=== PATIENT | female | born 1960 | race Caucasian/White ===

== ENCOUNTER 2017-12-11 10:24 | Outpatient (CLI) | payer MEDICARE, OTHER ==
[2017-12-11 11:05] LABS: #Basophils 0.1 thou/uL (0.0-0.2); #Eosinphils 0.1 thou/uL (0.0-0.7); #Monocytes 0.7 thou/uL (0.11-0.59); #Neutrophils 6.3 thou/uL (1.40-6.50); %Basophils 1.4 % (0.0-1.0); %Lymphocytes 21.6 % (21.0-51.0); %Neutrophils 68.9 % (42.0-75.0); Hemoglobin 15.5 g/dL (12.0-16.0); Mean Corpuscular HGB CONC 31.7 g/dL (32.0-36.0); Mean Corpuscular Hemoglobin 30.7 pg (27.0-31.0); Mean Corpuscular Volume 96.7 fl (81.0-99.0); Mean Platelet Volume 7.7 fL (7.4-10.4); Platelet Count 271 thou/uL (130-400); RBC Distribution Width 12.9 % (11.5-14.5); Red Blood Cell (RBC) Count 5.03 mill/uL (4.20-5.40); White Blood Cell (WBC) Count 9.2 thou/uL (4.8-10.8)
[2017-12-11 11:22] LABS: ALT (SGPT) 13 U/L (8-55); AST (SGOT) 15 U/L (5-34); Alkaline Phosphatase 101 U/L (40-150); Anion Gap 14 mmol/L (10-20); BUN (Urea Nitrogen) 8 mg/dL (9.8-20.1); Bilirubin, Direct 0.2 mg/dL (0.1-0.3); Bilirubin, Total 0.5 mg/dL (0.2-1.2); Calc. Creatinine Clearance 0 mL/min (70-130); Calcium 9.4 mg/dL (7.8-10.44); Carbon Dioxide 21 mmol/L (22-29); Chloride 108 mmol/L (98-107); Cholesterol 235 mg/dl (< 200 Desired); Estimated GFR-MDRD 73; Glucose 107 mg/dL (70-105); HDL Cholesterol 59 mg/dL (>60 Neg Risk); LDL Cholesterol, Calculated 160 mg/dL; Potassium 4.4 mmol/L (3.5-5.1); Protein, Total 7.2 g/dL (6.0-8.3); Sodium 139 mmol/L (136-145); Triglycerides 81 mg/dL (Less than 150)
--- NOTE | 2017-12-11 11:41 | RAD ---
TWO VIEW CHEST: Comparison: 04-22-14 Clinical history: Physical exam. FINDINGS: There is a left chest port again seen with tip overlying SVC region. There is no new consolidation, e ffusion, or pneumothorax. Cardiac silhouette is stable. There are interstitial opacities of each lung , nonspecific. IMPRESSION: 1. No lobar consolidation. 2. Chest is grossly stable from 04-22-14. POS: [facility]
== END 2017-12-11 10:25 | disposition home or self-care (01) ==
LOC: MADLABBHPM 10:24
PROVIDERS: ATTEND Family Medicine
DX: Z00.00 Encounter for general adult medical examination without abnormal findings (principal); I10 Essential (primary) hypertension; E03.9 Hypothyroidism, unspecified
CPT/HCPCS: 36415; 71046; 80048; 80061; 80076; 84443; 85025; 93005; 93010

== ENCOUNTER 2022-08-06 10:21 | Outpatient (CLI) | payer MEDICARE ==
[2022-08-06 11:22] LABS: #Basophils 0.2 thou/uL (0.0-0.2); #Eosinphils 0.1 thou/uL (0.0-0.7); #Lymphocytes 2.8 thou/uL (1.20-3.40); #Monocytes 1.3 thou/uL (0.11-0.59); #Neutrophils 9.9 thou/uL (1.40-6.50); %Basophils 1.5 % (0.0-1.0); %Eosinophils 0.4 % (0.0-10.0); %Lymphocytes 19.9 % (21.0-51.0); %Monocytes 8.8 % (0.0-10.0); %Neutrophils 69.4 % (42.0-75.0); Hemoglobin 16.2 g/dL (12.0-16.0); Mean Corpuscular HGB CONC 31.1 g/dL (32.0-36.0); Mean Corpuscular Hemoglobin 28.7 pg (27.0-31.0); Mean Corpuscular Volume 92.2 fL (78.0-98.0); Platelet Count 338 thou/uL (130-400); RBC Distribution Width 12.4 % (11.5-14.5); Red Blood Cell (RBC) Count 5.64 mill/uL (4.20-5.40); White Blood Cell (WBC) Count 14.3 thou/uL (4.8-10.8)
[2022-08-06 11:28] LABS: ALT (SGPT) 15 U/L (8-55); AST (SGOT) 12 U/L (5-34); Albumin 4.5 g/dL (3.4-4.8); Alkaline Phosphatase 96 U/L (40-110); Anion Gap 18 mmol/L (10-20); BUN (Urea Nitrogen) 14 mg/dL (9.8-20.1); Bilirubin, Total 0.5 mg/dL (0.2-1.2); Calc. Creatinine Clearance 0 mL/min (70-130); Calcium 10.8 mg/dL (7.8-10.44); Carbon Dioxide 25 mmol/L (23-31); Chloride 97 mmol/L (98-107); Cholesterol 260 mg/dl (< 200 Desired); Estimated GFR 81; Globulin 3.5 g/dL (2.4-3.5); Glucose 118 mg/dL (80-115); HDL Cholesterol 65 mg/dL (>60 Neg Risk); LDL Cholesterol, Calculated 164 mg/dL; Potassium 4.1 mmol/L (3.5-5.1); Sodium 136 mmol/L (136-145); Triglycerides 153 mg/dL (Less than 150)
== END 2022-08-06 10:22 | disposition home or self-care (01) ==
LOC: MADLAB 10:21
PROVIDERS: ATTEND Family Medicine
DX: Z13.220 Encounter for screening for lipoid disorders (principal); R07.89 Other chest pain; I10 Essential (primary) hypertension; R91.8 Other nonspecific abnormal finding of lung field; M84.48XA Pathological fracture, other site, initial encounter for fracture
CPT/HCPCS: 36415; 71046; 80053; 80061; 84443; 85025

== ENCOUNTER 2022-09-23 14:30 | Inpatient (IN) | payer MEDICARE ==
[2022-09-28] MEDS ORDERED: Ondansetron ODT 4 MG TAB PO PRN (18:24)
[2022-09-28] MEDS: HYDROcodone/Acetaminophen 7.5/325 mg Tablet PO PRN (21:17)
[2022-09-28] MEDS: Carvedilol 3.125 MG TAB PO SCH (21:17)
[2022-09-28] MEDS: Clotrimazole 1% Cream 15 GM TUBE TOP SCH (21:19)
[2022-09-28] MEDS: Nystatin 500,000 UNITS/5 ML UDCUP SSW SCH (21:19)
[2022-09-29] MEDS: HYDROcodone/Acetaminophen 7.5/325 mg Tablet PO PRN ×2 (01:59→17:46)
[2022-09-29 05:23] LABS: #Basophils 0.1 thou/uL (0.0-0.2); #Eosinphils 0.1 thou/uL (0.0-0.7); #Lymphocytes 1.3 thou/uL (1.20-3.40); #Monocytes 1.1 thou/uL (0.11-0.59); #Neutrophils 11.2 thou/uL (1.40-6.50); %Basophils 0.6 % (0.0-1.0); %Eosinophils 0.5 % (0.0-10.0); %Lymphocytes 9.7 % (21.0-51.0); %Monocytes 7.7 % (0.0-10.0); %Neutrophils 81.5 % (42.0-75.0); Hemoglobin 11.1 g/dL (12.0-16.0); Mean Corpuscular HGB CONC 31.9 g/dL (32.0-36.0); Mean Corpuscular Hemoglobin 28.2 pg (27.0-31.0); Mean Corpuscular Volume 88.5 fl (78.0-98.0); Mean Platelet Volume 8.1 fL (7.4-10.4); Platelet Count 194 thou/uL (130-400); Red Blood Cell (RBC) Count 3.92 mill/uL (4.20-5.40); White Blood Cell (WBC) Count 13.7 thou/uL (4.8-10.8)
[2022-09-29 05:40] LABS: ALT (SGPT) 25 U/L (8-55); AST (SGOT) 22 U/L (5-34); Albumin 2.9 g/dL (3.4-4.8); Alkaline Phosphatase 94 U/L (40-110); Anion Gap 14 mmol/L (10-20); BUN (Urea Nitrogen) 12 mg/dL (9.8-20.1); Bilirubin, Total 0.4 mg/dL (0.2-1.2); Calc. Creatinine Clearance 101 mL/min (70-130); Calcium 9.1 mg/dL (7.8-10.44); Carbon Dioxide 32 mmol/L (23-31); Chloride 93 mmol/L (98-107); Estimated GFR 99; Globulin 2.9 g/dL (2.4-3.5); Glucose 91 mg/dL (80-115); Potassium 3.8 mmol/L (3.5-5.1); Protein, Total 5.8 g/dL (5.8-8.1); Sodium 135 mmol/L (136-145)
[2022-09-29] MEDS: Levothyroxine Sodium 50 MCG TAB PO SCH (05:53)
[2022-09-29] MEDS: Nystatin 500,000 UNITS/5 ML UDCUP SSW SCH ×4 (08:18→21:21)
[2022-09-29] MEDS: Enoxaparin Sodium 40 MG/0.4 ML SYRINGE SC SCH (08:18)
[2022-09-29] MEDS: Furosemide 40 MG TAB PO SCH (08:19)
[2022-09-29] MEDS: Fluconazole 100 MG TAB PO SCH (08:19)
[2022-09-29] MEDS: Lisinopril 5 MG TAB PO SCH (08:23)
[2022-09-29] MEDS: Carvedilol 3.125 MG TAB PO SCH ×2 (08:23→21:21)
[2022-09-29] MEDS: Clotrimazole 1% Cream 15 GM TUBE TOP SCH ×2 (08:23→21:22)
[2022-09-30] MEDS: HYDROcodone/Acetaminophen 7.5/325 mg Tablet PO PRN ×4 (01:00→19:46)
[2022-09-30] MEDS: Levothyroxine Sodium 50 MCG TAB PO SCH (05:19)
[2022-09-30] MEDS: Fluconazole 100 MG TAB PO SCH (08:02)
[2022-09-30] MEDS: Nystatin 500,000 UNITS/5 ML UDCUP SSW SCH ×4 (08:04→19:45)
[2022-09-30] MEDS: Furosemide 40 MG TAB PO SCH (08:09)
[2022-09-30] MEDS: Lisinopril 5 MG TAB PO SCH (08:09)
[2022-09-30] MEDS: Carvedilol 3.125 MG TAB PO SCH ×2 (08:09→19:45)
[2022-09-30] MEDS: Clotrimazole 1% Cream 15 GM TUBE TOP SCH ×2 (08:10→19:53)
[2022-09-30] MEDS: Enoxaparin Sodium 40 MG/0.4 ML SYRINGE SC SCH (08:10)
[2022-09-30] MEDS: Acetaminophen 325 MG TAB PO PRN (18:24)
[2022-10-01] MEDS: HYDROcodone/Acetaminophen 7.5/325 mg Tablet PO PRN ×4 (05:40→21:18)
[2022-10-01] MEDS: Levothyroxine Sodium 50 MCG TAB PO SCH (05:40)
[2022-10-01] MEDS: Fluconazole 100 MG TAB PO SCH (08:14)
[2022-10-01] MEDS: Lisinopril 5 MG TAB PO SCH (08:14)
[2022-10-01] MEDS: Acetaminophen 325 MG TAB PO PRN ×2 (08:14→17:11)
[2022-10-01] MEDS: Nystatin 500,000 UNITS/5 ML UDCUP SSW SCH ×4 (08:14→21:17)
[2022-10-01] MEDS: Furosemide 40 MG TAB PO SCH (08:14)
[2022-10-01] MEDS: Carvedilol 3.125 MG TAB PO SCH ×2 (08:14→21:17)
[2022-10-01] MEDS: Enoxaparin Sodium 40 MG/0.4 ML SYRINGE SC SCH (08:16)
[2022-10-01] MEDS: Clotrimazole 1% Cream 15 GM TUBE TOP SCH ×2 (08:19→21:17)
[2022-10-02] MEDS: HYDROcodone/Acetaminophen 7.5/325 mg Tablet PO PRN ×4 (04:40→20:40)
[2022-10-02] MEDS: Levothyroxine Sodium 50 MCG TAB PO SCH (05:51)
[2022-10-02] MEDS: Fluconazole 100 MG TAB PO SCH (09:45)
[2022-10-02] MEDS: Nystatin 500,000 UNITS/5 ML UDCUP SSW SCH ×4 (09:45→20:40)
[2022-10-02] MEDS: Furosemide 40 MG TAB PO SCH (09:46)
[2022-10-02] MEDS: Clotrimazole 1% Cream 15 GM TUBE TOP SCH ×2 (09:46→20:40)
[2022-10-02] MEDS: Carvedilol 3.125 MG TAB PO SCH ×2 (09:46→20:40)
[2022-10-02] MEDS: Lisinopril 5 MG TAB PO SCH (09:46)
[2022-10-02] MEDS: Enoxaparin Sodium 40 MG/0.4 ML SYRINGE SC SCH (09:46)
[2022-10-03] MEDS: HYDROcodone/Acetaminophen 7.5/325 mg Tablet PO PRN ×5 (04:46→17:37)
[2022-10-03] MEDS: Levothyroxine Sodium 50 MCG TAB PO SCH (05:34)
[2022-10-03] MEDS: Lisinopril 5 MG TAB PO SCH (08:18)
[2022-10-03] MEDS: Clotrimazole 1% Cream 15 GM TUBE TOP SCH ×2 (08:18→21:09)
[2022-10-03] MEDS: Nystatin 500,000 UNITS/5 ML UDCUP SSW SCH ×4 (08:18→21:09)
[2022-10-03] MEDS: Enoxaparin Sodium 40 MG/0.4 ML SYRINGE SC SCH (08:18)
[2022-10-03] MEDS: Furosemide 40 MG TAB PO SCH (08:19)
[2022-10-03] MEDS: Fluconazole 100 MG TAB PO SCH (08:19)
[2022-10-03] MEDS: Carvedilol 3.125 MG TAB PO SCH ×2 (08:19→21:09)
[2022-10-03] MEDS: Acetaminophen 325 MG TAB PO PRN (08:57)
[2022-10-03 10:22] VITALS: BMI 27.4
[2022-10-04] MEDS: HYDROcodone/Acetaminophen 7.5/325 mg Tablet PO PRN ×2 (00:03→05:27)
[2022-10-04] MEDS: Guaifenesin DM 100-10/5 ML UDCUP PO PRN ×2 (00:04→21:02)
[2022-10-04] MEDS: Levothyroxine Sodium 50 MCG TAB PO SCH (05:26)
[2022-10-04] MEDS: Lisinopril 5 MG TAB PO SCH (08:13)
[2022-10-04] MEDS: Fluconazole 100 MG TAB PO SCH (08:13)
[2022-10-04] MEDS: Enoxaparin Sodium 40 MG/0.4 ML SYRINGE SC SCH (08:13)
[2022-10-04] MEDS: Carvedilol 3.125 MG TAB PO SCH ×2 (08:13→21:01)
[2022-10-04] MEDS: Furosemide 40 MG TAB PO SCH (08:13)
[2022-10-04] MEDS: Nystatin 500,000 UNITS/5 ML UDCUP SSW SCH ×4 (08:13→21:02)
[2022-10-04] MEDS: Clotrimazole 1% Cream 15 GM TUBE TOP SCH ×2 (08:14→21:02)
[2022-10-04] MEDS ORDERED: HYDROcodone/Acetaminophen 7.5/325 mg Tablet PO SCH (09:15)
[2022-10-04] MEDS: Lantiseptic Ointment 130 GM JAR TOP SCH ×2 (09:50→21:02)
[2022-10-04] MEDS: Lantiseptic Ointment 130 GM JAR TOP PRN (17:14)
[2022-10-04] MEDS: HYDROcodone/Acetaminophen 10/325 mg Tablet PO PRN ×2 (17:14→21:00)
[2022-10-05] MEDS: Levothyroxine Sodium 50 MCG TAB PO SCH (05:08)
[2022-10-05] MEDS: Guaifenesin DM 100-10/5 ML UDCUP PO PRN (05:11)
[2022-10-05] MEDS: HYDROcodone/Acetaminophen 10/325 mg Tablet PO PRN ×3 (08:45→22:34)
[2022-10-05] MEDS: Enoxaparin Sodium 40 MG/0.4 ML SYRINGE SC SCH (08:45)
[2022-10-05] MEDS: Furosemide 40 MG TAB PO SCH (08:45)
[2022-10-05] MEDS: Fluconazole 100 MG TAB PO SCH (08:46)
[2022-10-05] MEDS: Lisinopril 5 MG TAB PO SCH (08:46)
[2022-10-05] MEDS: Carvedilol 3.125 MG TAB PO SCH ×2 (08:47→20:45)
[2022-10-05] MEDS: Nystatin 500,000 UNITS/5 ML UDCUP SSW SCH ×4 (08:47→20:52)
[2022-10-05] MEDS: Clotrimazole 1% Cream 15 GM TUBE TOP SCH ×2 (08:47→20:46)
[2022-10-05] MEDS: Lantiseptic Ointment 130 GM JAR TOP SCH ×2 (08:47→20:46)
[2022-10-05] MEDS ORDERED: Ergocalciferol 1.25 MG(50,000 UNITS) CAP PO SCH (09:00)
[2022-10-06] MEDS: Lantiseptic Ointment 130 GM JAR TOP PRN (05:09)
[2022-10-06] MEDS: Levothyroxine Sodium 50 MCG TAB PO SCH (05:17)
[2022-10-06] MEDS: Fluconazole 100 MG TAB PO SCH (08:19)
[2022-10-06] MEDS: Carvedilol 3.125 MG TAB PO SCH ×2 (08:19→20:35)
[2022-10-06] MEDS: Lisinopril 5 MG TAB PO SCH (08:19)
[2022-10-06] MEDS: Enoxaparin Sodium 40 MG/0.4 ML SYRINGE SC SCH (08:19)
[2022-10-06] MEDS: Nystatin 500,000 UNITS/5 ML UDCUP SSW SCH ×4 (08:19→20:35)
[2022-10-06] MEDS: Furosemide 40 MG TAB PO SCH (08:19)
[2022-10-06] MEDS: Clotrimazole 1% Cream 15 GM TUBE TOP SCH ×2 (08:20→20:36)
[2022-10-06] MEDS: HYDROcodone/Acetaminophen 10/325 mg Tablet PO PRN ×2 (08:20→20:36)
[2022-10-06] MEDS: Lantiseptic Ointment 130 GM JAR TOP SCH ×2 (08:20→20:36)
[2022-10-06] MEDS: Guaifenesin DM 100-10/5 ML UDCUP PO PRN (08:25)
[2022-10-07] MEDS: Levothyroxine Sodium 50 MCG TAB PO SCH (05:40)
[2022-10-07 06:24] LABS: #Basophils 0.2 thou/uL (0.0-0.2); #Eosinphils 0.1 thou/uL (0.0-0.7); #Lymphocytes 1.8 thou/uL (1.20-3.40); #Monocytes 1.4 thou/uL (0.11-0.59); #Neutrophils 9.2 thou/uL (1.40-6.50); %Basophils 1.6 % (0.0-1.0); %Eosinophils 0.6 % (0.0-10.0); %Lymphocytes 14.3 % (21.0-51.0); %Monocytes 10.7 % (0.0-10.0); %Neutrophils 72.8 % (42.0-75.0); Hemoglobin 12.6 g/dL (12.0-16.0); Mean Corpuscular Hemoglobin 28.2 pg (27.0-31.0); Mean Corpuscular Volume 88.2 fl (78.0-98.0); Mean Platelet Volume 7.7 fL (7.4-10.4); Platelet Count 387 10x3/uL (130-400); Red Blood Cell (RBC) Count 4.48 mill/uL (4.20-5.40); White Blood Cell (WBC) Count 12.6 10x3/uL (4.8-10.8)
[2022-10-07] MEDS: Enoxaparin Sodium 40 MG/0.4 ML SYRINGE SC SCH (08:38)
[2022-10-07] MEDS: Clotrimazole 1% Cream 15 GM TUBE TOP SCH ×2 (08:39→21:02)
[2022-10-07] MEDS: Carvedilol 3.125 MG TAB PO SCH ×2 (08:39→21:01)
[2022-10-07] MEDS: Nystatin 500,000 UNITS/5 ML UDCUP SSW SCH ×4 (08:39→21:01)
[2022-10-07] MEDS: Furosemide 40 MG TAB PO SCH (08:39)
[2022-10-07] MEDS: Lisinopril 5 MG TAB PO SCH (08:39)
[2022-10-07] MEDS: Fluconazole 100 MG TAB PO SCH (08:39)
[2022-10-07] MEDS: Lantiseptic Ointment 130 GM JAR TOP SCH ×2 (08:39→21:02)
[2022-10-07] MEDS: HYDROcodone/Acetaminophen 10/325 mg Tablet PO PRN (10:17)
[2022-10-07] MEDS ORDERED: Mag-Al Plus 1200 MG/1200 MG/120 MG/30 ML UDCUP PO PRN (12:25)
[2022-10-07] MEDS: Guaifenesin DM 100-10/5 ML UDCUP PO PRN ×2 (15:35→21:08)
[2022-10-08] MEDS: Levothyroxine Sodium 50 MCG TAB PO SCH (05:26)
[2022-10-08] MEDS: HYDROcodone/Acetaminophen 10/325 mg Tablet PO PRN ×2 (07:51→17:16)
[2022-10-08] MEDS: Nystatin 500,000 UNITS/5 ML UDCUP SSW SCH ×4 (08:51→20:47)
[2022-10-08] MEDS: Lisinopril 5 MG TAB PO SCH (08:51)
[2022-10-08] MEDS: Carvedilol 3.125 MG TAB PO SCH ×2 (08:51→20:47)
[2022-10-08] MEDS: Clotrimazole 1% Cream 15 GM TUBE TOP SCH ×2 (08:53→20:47)
[2022-10-08] MEDS: Enoxaparin Sodium 40 MG/0.4 ML SYRINGE SC SCH (08:53)
[2022-10-08] MEDS: Furosemide 40 MG TAB PO SCH (08:53)
[2022-10-08] MEDS: Lantiseptic Ointment 130 GM JAR TOP SCH ×2 (08:58→20:47)
[2022-10-08] MEDS: Guaifenesin DM 100-10/5 ML UDCUP PO PRN (18:14)
[2022-10-09] MEDS: Levothyroxine Sodium 50 MCG TAB PO SCH (05:20)
[2022-10-09 07:41] VITALS: BP 118/82; TEMP 97.3
[2022-10-09] MEDS: HYDROcodone/Acetaminophen 10/325 mg Tablet PO PRN (08:31)
[2022-10-09] MEDS: Enoxaparin Sodium 40 MG/0.4 ML SYRINGE SC SCH (08:32)
[2022-10-09] MEDS: Carvedilol 3.125 MG TAB PO SCH (08:32)
[2022-10-09] MEDS: Furosemide 40 MG TAB PO SCH (08:32)
[2022-10-09] MEDS: Clotrimazole 1% Cream 15 GM TUBE TOP SCH (08:33)
[2022-10-09] MEDS: Lisinopril 5 MG TAB PO SCH (08:33)
[2022-10-09] MEDS: Lantiseptic Ointment 130 GM JAR TOP SCH (08:33)
[2022-10-09] MEDS: Guaifenesin DM 100-10/5 ML UDCUP PO PRN (08:38)
== END 2022-10-09 11:23 | disposition home health service (06) | DRG 948 ==
LOC: MADMS 09-28 16:12
PROVIDERS: ADMIT Family Medicine; ATTEND Family Medicine
DX: R53.1 Weakness (principal); I42.7 Cardiomyopathy due to drug and external agent; B37.0 Candidal stomatitis; B37.49 Other urogenital candidiasis; J96.11 Chronic respiratory failure with hypoxia; Z20.822 Contact with and (suspected) exposure to COVID-19; J44.9 Chronic obstructive pulmonary disease, unspecified; T45.1X5A Adverse effect of antineoplastic and immunosuppressive drugs, initial encounter; F20.9 Schizophrenia, unspecified; I50.9 Heart failure, unspecified; E03.9 Hypothyroidism, unspecified; M79.7 Fibromyalgia; R53.81 Other malaise; K43.9 Ventral hernia without obstruction or gangrene; K21.9 Gastro-esophageal reflux disease without esophagitis; Z79.899 Other long term (current) drug therapy; Z79.890 Hormone replacement therapy; Z87.01 Personal history of pneumonia (recurrent); Z85.3 Personal history of malignant neoplasm of breast; Z90.13 Acquired absence of bilateral breasts and nipples; Z92.21 Personal history of antineoplastic chemotherapy; Z92.3 Personal history of irradiation; Z87.891 Personal history of nicotine dependence
CPT/HCPCS: 36415; 80053; 82565; 85025; J1650; U0003; U0005

== ENCOUNTER 2022-11-02 09:32 | Emergency (ER) | payer MEDICARE ==
[~2022-11-02 09:32] MED LIST: Iopamidol 370 76% 125 ML VIAL FS ONE; Sodium Chloride 0.9% 100 ML BAG ONE
[2022-11-02] MEDS ORDERED: Vancomycin 1 GM VIAL ONE (10:00)
[2022-11-02] MEDS ORDERED: Vancomycin HCl 500 MG VIAL ONE (10:00)
[2022-11-02 10:07] LABS: #Basophils 0.2 thou/uL (0.0-0.2); #Lymphocytes 0.8 thou/uL (1.20-3.40); #Monocytes 0.7 thou/uL (0.11-0.59); %Basophils 1.6 % (0.0-1.0); %Lymphocytes 5.1 % (21.0-51.0); %Monocytes 4.3 % (0.0-10.0); Hemoglobin 12.1 g/dL (12.0-16.0); Mean Corpuscular HGB CONC 31.7 g/dL (32.0-36.0); Mean Corpuscular Hemoglobin 28.6 pg (27.0-31.0); Mean Corpuscular Volume 90.2 fl (78.0-98.0); Platelet Count 467 10x3/uL (130-400); RBC Distribution Width 16.6 % (11.5-14.5); Red Blood Cell (RBC) Count 4.23 mill/uL (4.20-5.40); White Blood Cell (WBC) Count 15.7 10x3/uL (4.8-10.8)
[2022-11-02] MEDS ORDERED: Thiamine HCl 200 MG/2 ML VIAL ONE (10:13)
[2022-11-02 10:18] LABS: PTT 26.6 sec (22.9-36.1); Prothrombin Time 13.4 sec (12.0-14.7)
[2022-11-02 10:30] LABS: ALT (SGPT) 9 U/L (8-55); AST (SGOT) 12 U/L (5-34); Albumin 2.9 g/dL (3.4-4.8); Alkaline Phosphatase 142 U/L (40-110); Anion Gap 17 mmol/L (10-20); BUN (Urea Nitrogen) 23 mg/dL (9.8-20.1); Bilirubin, Total Less than 0.2 mg/dL (0.2-1.2); CK (CPK) Less than 9 U/L (29-168); Calc. Creatinine Clearance 0 mL/min (70-130); Calcium 10.1 mg/dL (7.8-10.44); Carbon Dioxide 33 mmol/L (23-31); Chloride 95 mmol/L (98-107); Estimated GFR 100; Globulin 2.8 g/dL (2.4-3.5); Glucose 119 mg/dL (80-115); Potassium 5.4 mmol/L (3.5-5.1); Protein, Total 5.7 g/dL (5.8-8.1); Sodium 140 mmol/L (136-145)
[2022-11-02 10:32] LABS: Acetaminophen Less than 10.0 mcg/mL (10.0-30.0); Alcohol Less than 10 mg/dL (Less than 10); Salicylate Less than 8.0 mg/dL (15.0-30.0)
[2022-11-02] MEDS ORDERED: methylPREDNISolone Sod Succ/PF 125 MG/2 ML VIAL ONE (10:34)
[2022-11-02] MEDS ORDERED: Sodium Chloride 0.9% 1,000 ML ONE (10:39)
[2022-11-02] MEDS ORDERED: Aspirin 300 MG Suppository ONE (10:42)
[2022-11-02 10:44] LABS: CKMB 2.7 ng/mL (0-6.6)
[2022-11-02 10:55] LABS: Base Excess-Venous 3.7 mmol/L (-2.0 to 3.0); CO2 Tension (PvCO2) 92.2 mmHg (42.0-51.0); Chloride 100 mmol/L (98-107); Hemoglobin - Calc 13.3 g/dL (12.0-16.0); Potassium 5.2 mmol/L (3.5-5.1); Sodium 140 mmol/L (138-145); T. Carbon Dioxide 37.8 mmol/L (22.0-28.0); vO2 Saturation-calc 98.1 % (60.0-85.0)
[2022-11-02] MEDS ORDERED: Ipratropium Bromide 2.5 ml Neb ONE (10:59)
[2022-11-02] MEDS ORDERED: Albuterol Sulfate 2.5 mg/3 ml Neb ONE (10:59)
[2022-11-02 11:05] LABS: Bilirubin Moderate (Negative); Blood, Urine Negative (Negative); Glucose, Urine (Dipstick) Negative (Negative); Ketone, Urine Negative (Negative); Leukocyte Negative (Negative); Nitrite Negative (Negative); Protein, Urine (Dipstick) 100 mg/dL (Neg-Trace)
[2022-11-02 11:08] LABS: Clarity Hazy (Clear)
[2022-11-02 11:11] LABS: Bacteria/HPF 3+ HPF (None Seen); RBC/HPF 0-3 HPF (0-3); Squamous Epithelial 0-3 HPF (0-3); WBC/HPF None Seen HPF (0-3)
[2022-11-02] MEDS ORDERED: Norepinephrine 4 MG/4 ML VIAL ONE ×2 (11:18)
[2022-11-02] MEDS ORDERED: Sodium Chloride 0.9% 250 ML 250 ML ONE (11:19)
[2022-11-02 11:20] LABS: Amphetamine Not Detected (NotDetected); Barbiturates Screen Not Detected (NotDetected); Benzodiazepine Screen Not Detected (NotDetected); Cocaine Metabolite Screen Not Detected (NotDetected); Medtox Control Line Valid? VALID (VALID); Methadone Not Detected (NotDetected); Methamphetamine Not Detected (NotDetected); Opiate Screen Detected (NotDetected); Oxycodone Screen Not Detected (NotDetected); Phencyclidine (PCP) Not Detected (NotDetected); THC/Cannabinoid Screen Not Detected (NotDetected); Tricyclic Screen Not Detected (NotDetected)
[2022-11-02 11:26] LABS: SARS-CoV-2 NAA Rapid Test Not Detected (NotDetected)
[2022-11-02] MEDS ORDERED: Cefepime 2 GM VIAL ONE (12:02)
[2022-11-02] MEDS ORDERED: Naloxone HCl 0.4 mg/ml Vial ONE (12:28)
== END 2022-11-02 13:04 | disposition short-term general hospital (02) ==
LOC: MADERS 09:32
DX: J44.1 Chronic obstructive pulmonary disease with (acute) exacerbation (principal); R65.21 Severe sepsis with septic shock; G93.40 Encephalopathy, unspecified; J96.92 Respiratory failure, unspecified with hypercapnia; J96.91 Respiratory failure, unspecified with hypoxia; C79.9 Secondary malignant neoplasm of unspecified site; E87.5 Hyperkalemia; I21.4 Non-ST elevation (NSTEMI) myocardial infarction; J91.0 Malignant pleural effusion; E03.9 Hypothyroidism, unspecified; F17.210 Nicotine dependence, cigarettes, uncomplicated; I50.9 Heart failure, unspecified; Z20.822 Contact with and (suspected) exposure to COVID-19
CPT/HCPCS: 51701; 70450; 71045; 71275; 80053; 80306; 80307; 81003; 81015; 82330; 82550; 82553; 82803; 83605; 83735; 83880; 84439; 84443; 84484; 85014; 85025; 85610; 85730; 87040; 87086; 93005; 94760; 96365; 96366; 96367; 96368; 96375; 99292; J0692; J1956; J2310; J2930; J3370; J3411; J7050; J7070; J7611; J7620; Q9967